=== PATIENT | male | born 1955 | race Caucasian/White ===

== ENCOUNTER 2018-07-04 12:44 | Emergency (ER) | payer BC ==
[2018-07-04 13:12] VITALS: BP 148/74
--- NOTE | 2018-07-04 13:19 | UC ---
Upper Extremity HPI - HPI Summary HPI Summary: Pt presents for evaluation or right mid forearm. Approx 5 days ago pt tripped and fell on a step in [facility]. pt states bruised a immediately. Pt did not seek medical care. No analgesia taken. Pt states ecchymosis progressed and now to wrist. Pt used ext without limitation. Pt is RHD Skin intact. pt with hematoma ad inquired if "cut it out" No paresthesia no weakness. pt takes 81mg ASA pt's medications reviewed this visit - History of Current Complaint Chief Complaint: UCUpperExtremity Stated Complaint: SP FALL-RT ARM INJURY Time Seen by Provider: 07/04/18 13:18 Hx Obtained From: Patient ?: No Onset/Duration: Sudden Onset, Lasting Days Severity Initially: Mild Pain Intensity: 3 - Allergies/Home Medications Allergies/Adverse Reactions: Allergies Allergy/AdvReac Type Severity Reaction Status Date / Time No Known Allergies Allergy Verified 07/04/18 13:03 Home Medications: Home Medications Amlodipine Besylate/Benazepril [Lotrel 5-10 mg Capsule] 1 cap QPM 07/04/18 [ History Confirmed 07/04/18] Atorvastatin* [Lipitor 10 MG*] 1 tab EVERY OTHER DAY 07/04/18 [History Confirmed 07/04/18] Omeprazole CAP* [Prilosec CAP* 20 MG] 40 mg QAM 07/04/18 [History Confirmed ] PMH/Surg Hx/FS Hx/Imm Hx Previously Healthy: Yes - Surgical History Surgical History: None - Family History Known Family History: Positive: Non-Contributory Negative: Blood Disorder - Social History Occupation: Retired - early head start teacher Lives: With Family Alcohol Use: Daily Alcohol Amount: 1-2 BEERS/NIGHT Substance Use Type: None Smoking Status (MU): Never Smoked Tobacco Review of Systems All Other Systems Reviewed And Are Negative: Yes Constitutional: Positive: Negative Skin: Positive: Bruising Musculoskeletal: Positive: Other: - right forearm Physical Exam - Summary Physical Exam Summary: Vital Signs Reviewed: Yes A+Ox3, no distress Eyes: Conjunctiva Clear ENT: Hearing grossly normal neck: supple Respiratory: Positive: No respiratory distress, No accessory muscle use Cardiovascular: skin color reflect adequate perfusion 2+ radial, 2+ ulna Musculoskeletal Exam: Full AROM right shoulder and right elbow + pronate/ supinate right elbow + flex/ext wrist no scaphoid pain Pt with 2x2 cm hematoma right midforearm radial aspect. No crepitus. + TTP Neurological: Positive: Alert, ambulatory without difficulty + thumb up, a ok, finger spread, finger cross 5/5 grasp Psychological: Positive: Normal Response To Family Skin: Positive: hematoma right mid radius right ecchymosis extend to right wrist mild edema at hematoma Vital Signs: Initial Vital Signs Temp 97.3 F 07/04/18 13:05 Pulse 70 07/04/18 13:05 Resp 16 07/04/18 13:05 BP 148/74 07/04/18 13:05 Pulse Ox 100 07/04/18 13:05 Diagnostics - Radiology No standard instances Radiology Interpretation Completed By: Radiologist - Patient Name: WILLY SANTANA Medical Record#: [id number] Ordering Physician: Salina Zazueta MD Acct.#: [id number] : 1955 Age: 62 Sex: M Location: [facility] Exam Date: 07/04/181327 ADM Status: REG ER Order Information: FOREARM RIGHT 2 VWS Accession Number: [id number] CPT: 87975 Indication: RIGHT midforearm hematoma. Pain. Comparison: No relevant prior exams available on the [facility] PACS for comparison. Technique: AP and lateral views RIGHT radius and ulna. REPORT AND IMPRESSION: #. Soft tissue swelling greatest along the medial aspect proximally. No subcutaneous emphysema or conspicuous foreign body. Negative for fracture or articular malalignment. <Electronically signed by Tico Lovelace MD in [place]> 07/04/18 135 Dictated By: Tico Lovelace MD Dictated Date/Time: 07/04/18 135 Transcribed Date/Time: 07/04/18 135 Copy to: CC:Blade White MD; Salina Zazueta MD Imaging - [facility] [address] ([phone]) ph ([phone]) ) This report is only to be considered final once signed by the Provider(s) as displayed in the "<Electronically Signed by >" field (s). Absence of a signature indicates the report is in a draft status and still needs to be finalized. In the event this document was created by someone other than the signing Provider, the individual initiating the document will be listed in the "Entered by:" or "Dictated by:" grissom. 1 of 1 Upper Extremity Course/Dx - Course Course Of Treatment: Pt with right mid forearm hematoma and resolving ecchymosis s/p fall 5 days ago. Skin intact. Pt with discomfort with direct palpation of hematoma and pronate/supinate. hematoma is firm - no fluctuance. . imaging no fx. recommend splint,elevate, motrin/apap. referral to orthopedic. No concern for compartment syndrome at today's visit - recommend rest and elevate. strict return precautions. pt comfortable and in agreement with plan. elvated BP - h.o same - Differential Dx/Diagnosis Provider Diagnosis: Traumatic hematoma of right forearm Discharge - Sign-Out/Discharge Documenting (check all that apply): Patient Departure All imaging exams completed and their final reports reviewed: Yes - Discharge Plan Condition: Stable Disposition: HOME Patient Education Materials: Contusion in Adults (ED), Hematoma (ED) Referrals: Con Francois MD [Medical Doctor] - Blade White MD [Primary Care Provider] - Additional Instructions: - wear splint and sling for support and comfort. - elevate your arm to help with swelling and pain - Okay to alternate ibuprofen (Advil, Motrin) and tylenol every 3 hours as needed for pain - it is recommended you contact Dr. Francois - orthopedics - to schedule a recheck early next week. Contact Dr. Francois, return here, go to the emergency department or call your primary doctor with questions or concerns - Billing Disposition and Condition Condition: STABLE Disposition: Home
== END 2018-07-04 14:07 | disposition home or self-care (01) ==
LOC: UCCORT 12:44
DX: S50.11XA Contusion of right forearm, initial encounter (principal); Z79.82 Long term (current) use of aspirin; W01.0XXA Fall on same level from slipping, tripping and stumbling without subsequent striking against object, initial encounter; Y92.89 Other specified places as the place of occurrence of the external cause
CPT/HCPCS: 99203; G0463